=== PATIENT | male | born 1955 | race Caucasian/White ===

== ENCOUNTER 2016-10-19 11:20 | Emergency (ER) | payer MEDICAID ==
[2016-10-19 11:34] VITALS: TEMP 97.9
[2016-10-19 12:07] LABS: COLOR YELLOW; LEUKOCYTE ESTERASE,URINE NEGATIVE (NEGATIVE); NITRITE,URINE NEGATIVE (NEGATIVE)
[2016-10-19 12:14] LABS: RBC,URINE 50-182 /hpf (0-3); WBC,URINE NONE SEEN /hpf (0-3)
[2016-10-19] MEDS ORDERED: NS 1,000 ML IV ONE (13:10)
[2016-10-19] MEDS ORDERED: HYDROmorphONE/DILAUDID 1 MG/ML SYR IVP ONE ×2 (13:12→15:45)
[2016-10-19 13:44] LABS: % IMMATURE GRANULYOCYTES 0.1 % (0.0-1.1); ABSOLUTE IMMATURE GRANULOCYTES 0.01 10^3/uL (0.00-0.10); ADD DIFF? NO; ADD MORPH? NO; ADD SCAN? NO; ATYPICAL LYMPHOCYTE FLAG 30 (0-99); FRAGMENT RBC FLAG 0 (0-99); HEMATOCRIT 42.8 % (40.0-51.0); HEMOGLOBIN 13.9 g/dL (13.7-17.5); LEFT SHIFT FLG 0 (0-99); LIPEMIA HEMOLYSIS FLAG 80 (0-99); MEAN CELL HEMOGLOBIN 30.2 pg (27.9-34.1); MEAN CELL HEMOGLOBIN CONCENTR. 32.5 g/dL (32.4-36.7); MEAN PLATELET VOLUME 8.7 fL (8.7-11.7); PLATELET CLUMPS FLAG 0 (0-99); PLATELET COUNT 261 10^3/uL (150-400); RED CELL DISTRIBUTION WIDTH 13.3 % (11.5-15.2)
[2016-10-19 14:00] LABS: ANION GAP 10 mEq/L (8-16); CARBON DIOXIDE 27 mEq/l (22-31); CHLORIDE 104 mEq/L (97-110); GLOMERULAR FILTRATION RATE > 60; GLUCOSE 107 mg/dL (70-100); POTASSIUM 4.5 mEq/L (3.5-5.2); SODIUM 141 mEq/L (134-144)
--- NOTE | 2016-10-19 15:09 | CT ---
CT Abdomen and Pelvis Unenhanced (Renal Stone Protocol) Indication: Left flank pain. Comparison: CT abdomen and pelvis August 09, 2016. Technique: Axial unenhanced CT imaging was performed through the abdomen and pelvis without contrast . Dose reduction techniques were utilized. Findings: Abdomen: Right middle lobe granuloma is noted. Heart size is normal. The imaged noncontrast portions of the liver, spleen, gallbladder, pancreas and adrenal glands are un remarkable. Two punctate nonobstructing left renal stones are present. No ureteral stones are identi fied. The right kidney has a normal unenhanced appearance. Diffuse colonic diverticulosis is present without evidence of diverticulitis. There is moderate stool in the colon. The colon and small bowel are normal caliber. A tiny hiatal hernia is present. The indira endix is not visible. The aorta is normal caliber with mild atherosclerosis.. Degenerative change in the spine is stable, most prominent at L5-S1. Pelvis: No bladder or distal ureteral calcifications are identified. There is mild bladder wall thi ckening relative to the degree of distention. The prostate is borderline enlarged. Injection granulom erik are noted in the buttocks. No aggressive osseous lesions are identified. Impression: 1. Diverticulosis without evidence of diverticulitis. 2. Nonobstructing punctate left nephrolithiasis. 3. Mild bladder wall thickening relative to the degree of distention, which could be related to bladd er outlet obstruction or less likely inflammation. 4. Additional findings as above. Attention: This CT examination is specifically designed to evaluate patients who are clinically susp ected of having acute obstructive uropathy. This examination does not use radiographic contrast, and as such, provides only a limited evaluation of the abdomen, pelvis and retroperitoneum. If there i s further clinical suspicion for pathological conditions other than obstructive uropathy, a complete CT evaluation of the abdomen and pelvis utilizing intravenous, oral, and rectal contrast should be co nsidered. Findings discussed with Dr. Bebe Matthews today at 1503 hours.
--- NOTE | 2016-10-19 15:18 | EDPHY ---
H & P Stated Complaint: left flank, lower back, radiaiting down to testicle, hematuria Time Seen by Provider: 10/19/16 12:30 HPI/ROS: CHIEF COMPLAINT: Left flank, abdominal and bilateral testicular pain HISTORY OF PRESENT ILLNESS:This is a 61 year old male who reports a history of kidney stones and ureteral colic who presents with L flank pain that radiates to his left lower abdomen and into both testicles. He describes it as sharp, stabbing, and burning. It has been present for over twelve hours with waning and waning. No fever, nausea, vomiting, diarrhea, dysuria, urinary urgency, or frequency. REVIEW OF SYSTEMS: A ten point review of systems was performed and is negative with the exception of the items mentioned in the HPI. Source: Patient Exam Limitations: No limitations - Personal History Current Tetanus/Diphtheria Vaccine: Unsure Current Tetanus Diphtheria and Acellular Pertussis (TDAP): Unsure - Medical/Surgical History Hx Asthma: No Hx Chronic Respiratory Disease: No Hx Diabetes: No Hx Cardiac Disease: No Hx Renal Disease: No Hx Cirrhosis: No Hx Alcoholism: No Hx HIV/AIDS: No Hx Splenectomy or Spleen Trauma: No Other PMH: KIDNEY STONES, TB (1982), APPENDECTOMY. divertic - Social History Smoking Status: Current every day smoker Alcohol Use: None Drug Use: None Additional Social History: Employed at [employer]. He is living with a sister. - Physical Exam Exam: General Appearance: Alert. Vital signs reviewed. BP 150/125. Eyes: Pupils equal and round, no conjunctival injection, no discharge. Anicteric. ENT, Mouth: Mucous membranes are moist, no oropharyngeal erythema or edema. Neck: No lymphadenopathy, supple. Respiratory: Lungs are clear to auscultation; no wheezes, rales, or rhonchi. Cardiovascular: Regular rate and rhythm; no murmur, rub, or gallop. Gastrointestinal: Abdomen is soft and nontender, no masses or organomegaly, bowel sounds normal. : Normal circumcised male. No testicular or scrotal swelling. No inguinal hernia with scrotal invagination bilaterally. Skin: Warm and dry, no rashes on exposed skin, normal color. No evidence of shingles. Back: Nontender to palpation over the thoracolumbar spine. Mild left CVAT. Extremities: No lower extremity edema, no calf tenderness or swelling. Neurological: Alert and oriented. Moving all four extremities easily and equally. Psychiatric: Normal affect. Constitutional: Initial Vital Signs Temperature (C) 36.6 C 10/19/16 11:27 Heart Rate 97 10/19/16 11:27 Respiratory Rate 18 10/19/16 11:27 Blood Pressure 150/125 H 10/19/16 11:27 O2 Sat (%) 98 10/19/16 11:27 O2 Delivery Mode Room Air Allergies/Adverse Reactions: ketorolac tromethamine [From Toradol] Allergy (Verified 08/14/16 13:28) promethazine HCl [From Phenergan] Allergy (Verified 08/14/16 13:28) Home Medications: Medication Instructions Recorded Hydrocodone/APAP 5/325 [[place] 1 - 2 tab PO Q4 PRN #14 tab 10/19/16 5/325 (RX)] Medical Decision Making - Diagnostics Imaging: CT scan of the abdomen and pelvis does not show ureterolithiasis. There are a few stones in the left kidney but none in the ureters. There is mild bladder wall thickening. Diverticulosis but no diverticulitis. The report was read by Dr. Joe Soto. I viewed the images. Bilateral testicular ultrasound reported to me by Dr. Malik Carlos. Study is normal. ED Course/Re-evaluation: 61-year-old male who reports a history of ureterolithiasis but upon review of his records I do not find that that has been borne out by CT scan. He does have a history of hematuria and has been seen by Urology. He has hematuria today. He reports left flank, abdominal, and bilateral testicular pain that he describes as severe. UA shows blood only, no evidence of infection. Abdominal and genital exam is benign. No signs of shingles on exam. CBC and chemistries are essentially normal. CT scan today shows punctate left renal stones, no ureterolithiasis---nothing to explain his pain. He continued to complain of bilateral testicular pain while in the ED. Exam for hernias negative. Testicular ultrasound is normal. I have not discovered in etiology for this gentleman's pain. I am recommending follow up for his hematuria with Urology or his primary care physician. He does have an appointment with a new primary care physician in [place] this coming (today is Friday). I am discharging him with a prescription for Vicodin to use if needed dispense 14. We reviewed the danger signs that should prompt him to return. He received IV Dilaudid 0.5 mg twice for pain control. He cannot take anti- inflammatory medications. 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 He is also employed at [employer]. He has been hypertensive in the emergency department with a blood pressure of 145/98 at discharge. He is aware of this and will have this followed up by his new primary care physician. Differential Diagnosis: Flank pain including but not limited to musculoskeletal causes, kidney stone, pyelonephritis, shingles, and intra-abdominal causes such as diverticulitis. - Data Points Laboratory Results: Laboratory Results 10/19/16 13:28 10/19/16 13:28 Medications Given: Discontinued Medications Hydromorphone HCl (Dilaudid) 0.5 mg IVP EDNOW ONE Stop: 10/19/16 13:13 Last Admin: 10/19/16 13:29 Dose: 0.5 mg Hydromorphone HCl (Dilaudid) 0.5 mg IVP EDNOW ONE Stop: 10/19/16 15:46 Last Admin: 10/19/16 15:51 Dose: 0.5 mg Sodium Chloride (Ns) 1,000 mls @ 0 mls/hr IV ONCE ONE PRN Reason: Wide Open Stop: 10/19/16 13:11 Last Admin: 10/19/16 13:29 Dose: 1,000 mls Departure - Departure Disposition: Home, Routine, Self-Care Clinical Impression: Hematuria, Flank pain Abdominal pain Qualifiers: Qualifier Code: (R10.32) Left lower quadrant pain Instructions: Hematuria (ED), Abdominal Pain (ED), Flank Pain (ED) Additional Instructions: Keep your appointment in [place] on . You do have blood in your urine today and I recommend follow-up with Urology if this continues. Your doctor can recheck this on . Use the Vicodin as needed for pain. You can take 1-2 every 4-6 hours. You should not take additional Tylenol when taking this medication. You should not drive a car or engage in potentially dangerous activities when taking this medication. This is an opiate pain medication. You will not be able to receive additional prescriptions for this medication from the emergency department. Referrals: IN STATE,. [Primary Care Provider] - As per Instructions Stand Alone Forms: Work Excuse Prescriptions: Hydrocodone/APAP 5/325 [[place] 5/325 (RX)] 1 - 2 tab PO Q4 PRN #14 tab PRN Reason: pain
--- NOTE | 2016-10-19 16:33 | US ---
Testicular Sonography History: Scrotal pain. Technique: Real-time imaging with a high frequency transducer and both color and pulsed duplex dopple r analysis. Findings: Both testes are well visualized. They are normal in size and homogeneous in echotexture. Sm all bilateral hydrocele. Doppler analysis reveals symmetric normal flow in each testis. The epididymi carmita are symmetric and normal. Impression: Negative scrotal sonography. Results called to Dr. Matthews at 1630 p.m.
[2016-10-19 16:53] VITALS: BP 145/98; PULSE 84; RESP 16; O2SAT 93
== END 2016-10-19 16:53 | disposition home or self-care (01) ==
DX: R10.32 Left lower quadrant pain (principal); R31.9 Hematuria, unspecified; F17.200 Nicotine dependence, unspecified, uncomplicated
CPT/HCPCS: 96374; J1170

== ENCOUNTER 2016-11-09 10:23 | Emergency (ER) | payer OTHER, MEDICAID ==
[2016-11-09 10:38] VITALS: BP 124/75; PULSE 81; RESP 18; TEMP 98.2; O2SAT 98
--- NOTE | 2016-11-09 14:15 | EDPHY ---
H & P Stated Complaint: fall 8-10feet off ladder while working at [employer]. back & L side pain - Personal History Current Tetanus/Diphtheria Vaccine: Unsure Current Tetanus Diphtheria and Acellular Pertussis (TDAP): Unsure - Medical/Surgical History Hx Asthma: No Hx Chronic Respiratory Disease: No Hx Diabetes: No Hx Cardiac Disease: No Hx Renal Disease: No Hx Cirrhosis: No Hx Alcoholism: No Hx HIV/AIDS: No Hx Splenectomy or Spleen Trauma: No Other PMH: KIDNEY STONES, TB (1982), APPENDECTOMY. divertic - Social History Smoking Status: Heavy smoker Time Seen by Provider: 11/09/16 11:34 HPI/ROS: Chief complaint: Fall with back and left arm injury History of present illness: This is a 61-year-old male who presents to the emergency department for evaluation after sustaining a fall earlier today at work. States he fell off a ladder landing on his back and striking his left arm. Since the fall he has had pain in the mid back, low back, left shoulder, elbow and wrist. Pain is worse with movement, better with rest. He denies other associated signs or symptoms: There was no loss of consciousness, no report of pain or trauma to the head or neck, no pain or trauma reported to the chest, abdomen, pelvis or lower extremities. No paresthesias, no weakness or paralysis, no bowel or bladder dysfunction. Review of systems: A 10 point review of systems was obtained and other than described above was negative (Jericho Reddy) - Physical Exam Exam: General Appearance: Alert and oriented Eyes: PERRLA ENT: No hemotympanum, no howell sign, no raccoon eyes Respiratory: Lungs clear to auscultation Cardiac: Regular rate and rhythm. Gastrointestinal: Bowel sounds normal. Abdomen is soft, nondistended, nontender. Neurological: Alert and oriented x4. Strength and sensation intact and symmetrical. Skin: No lesions consistent with acute trauma. Musculoskeletal: Head is normocephalic, atraumatic. The cervical spine is nontender to palpation. the upper thoracic spine is unremarkable. Lower thoracic spine and lumbar spine is tender to palpation with associated paraspinal muscle tenderness. There is no crepitus, bony deformity or step- off. There is tenderness left shoulder, left elbow and wrist. However he is moving these joints well. The rest of the extremities unremarkable. He is ambulating without difficulty. (Jericho Reddy) Constitutional: Initial Vital Signs Temperature (C) 36.8 C 11/09/16 10:37 Heart Rate 81 11/09/16 10:37 Respiratory Rate 18 11/09/16 10:37 Blood Pressure 124/75 H 11/09/16 10:37 O2 Sat (%) 98 11/09/16 10:37 O2 Delivery Mode Room Air Allergies/Adverse Reactions: ketorolac tromethamine [From Toradol] Allergy (Verified 08/14/16 13:28) promethazine HCl [From Phenergan] Allergy (Verified 08/14/16 13:28) Home Medications: Medication Instructions Recorded Hydrocodone/APAP 5/325 [[place] 1 - 2 tab PO Q4 PRN #14 tab 10/19/16 5/325 (RX)] Medical Decision Making ED Course/Re-evaluation: Patient seen under the supervision of my secondary supervising physician Dr. Kimani Posey. Patient presents to the emergency department for evaluation of trauma sustained after falling off a ladder work today. When patient first came to the hospital he was found by security wondering around the hospital looking for coffee. When security asked what he was doing he stated he was going over to the emergency room. Nursing staff noted he had a hospital bracelet on his wrist from another hospital apparently from a visit yesterday. I did perform a PDMP look up on this patient and he has had extensive prescriptions for narcotic medications over the last few months from multiple emergency department. I did discuss this with him. I discussed with him that we would not provide him with further narcotic medication here in the emergency department or at home unless an objective reason to do so was found. At that time patient stated he did not want an evaluation, got up, got dressed and left the emergency department. (Jericho Reddy) Departure - Departure Disposition: Left Without Being Seen Clinical Impression: Fall Qualifiers: Encounter type: initial encounter Qualifier Code: (W19.XXXA) Unspecified fall, initial encounter Condition: Good Referrals: NONE *PRIMARY CARE P,. [Primary Care Provider] - As per Instructions
== END 2016-11-09 12:11 | disposition left against medical advice (07) ==
DX: S49.92XA Unspecified injury of left shoulder and upper arm, initial encounter (principal); F17.200 Nicotine dependence, unspecified, uncomplicated; W11.XXXA Fall on and from ladder, initial encounter; Y92.69 Other specified industrial and construction area as the place of occurrence of the external cause; Y99.0 Civilian activity done for income or pay